=== PATIENT | male | born 2005 | race Caucasian/White ===

== ENCOUNTER → 2023-01-08 10:05 | Outpatient (CLI) | payer OTHER, SELFPAY | LOC: LAB.DROPOF 01-09 07:44 | PROVIDERS: PCP Nurse Practitioner Family; Visit Provider Nurse Practitioner Family | DX: R50.9 Fever, unspecified (principal); R05.9 Cough, unspecified; R07.89 Other chest pain; R06.02 Shortness of breath; R51.9 Headache, unspecified; Z20.822 Contact with and (suspected) exposure to COVID-19 | CPT/HCPCS: 87635 ==